=== PATIENT | male | born 1985 | race Caucasian/White ===

== ENCOUNTER 2024-02-15 19:49 | Emergency (ER) | payer MEDICAID ==
[~2024-02-15] VITALS: Ht 188 cm; Wt 99.5 kg
[2024-02-15 20:07] VITALS: O2SAT 98
[2024-02-15] MEDS ORDERED: IBUP-2028 MT (20:59)
[2024-02-15 21:57] VITALS: BP 132/77; PULSE 77; RESP 17; TEMP 36.83628; O2SAT 98
== END 2024-02-15 22:00 | disposition home or self-care (01) ==
LOC: ER 19:49
DX: M25.561 Pain in right knee (principal); W18.30XA Fall on same level, unspecified, initial encounter; Y93.89 Activity, other specified; Y92.89 Other specified places as the place of occurrence of the external cause; Y99.8 Other external cause status
CPT/HCPCS: 73560; 99283; Z7610; L1830